=== PATIENT | female | born 1975 | race Hispanic/Latino ===

== ENCOUNTER → 2023-01-10 | Outpatient (CLI) | payer BC | END | disposition home or self-care (01) | LOC: RAH 13:22 | PROVIDERS: ATTEND Internal Medicine | DX: R10.11 Right upper quadrant pain (principal); M41.9 Scoliosis, unspecified | CPT/HCPCS: 72082 ==

== ENCOUNTER → 2023-01-12 | Outpatient (CLI) | payer BC | END | disposition home or self-care (01) | LOC: RAH 07:56 | PROVIDERS: ATTEND Internal Medicine | DX: R10.11 Right upper quadrant pain (principal); M41.9 Scoliosis, unspecified | CPT/HCPCS: 76700 ==

== ENCOUNTER → 2023-04-07 | Outpatient (CLI) | payer BC | END | disposition home or self-care (01) | LOC: RAH 08:24 | PROVIDERS: ATTEND Obstetrics & Gynecology | DX: Z12.31 Encounter for screening mammogram for malignant neoplasm of breast (principal) | CPT/HCPCS: 77067 ==

== ENCOUNTER → 2025-06-11 | Outpatient (CLI) | payer BC | END | disposition home or self-care (01) | LOC: RAH 07:35 | PROVIDERS: ATTEND Obstetrics & Gynecology | DX: Z12.31 Encounter for screening mammogram for malignant neoplasm of breast (principal) | CPT/HCPCS: 77067 ==

== ENCOUNTER → 2025-07-17 | Outpatient (CLI) | payer BC ==
--- NOTE | 2025-07-17 10:45 | HMCIMG ---
BILATERAL BREAST ULTRASOUND: Finding: Real-time examination of the both breasts demonstrates heterogeneous echotexture throughout both the breasts without evidence of focal solid or cystic masses. There is a left axillary lymph node measuring 1.2 x 0 6.7 x 1.4 cm. IMPRESSION: Dense breast with no lesion seen. FINAL ASSESSMENT: ACR: BI-RAD- 2. Benign: Also a negative assessment; finding(s) benign abnormalities. Management: Routine mammography screening. Likelihood of Cancer: Essentially 0% likelihood of malignancy.
--- NOTE | 2025-07-17 10:48 | HMCIMG ---
DIGITAL left breast DIAGNOSTIC MAMMOGRAM WITH TOMOSYNTHESIS, DATED 07/17/2025 1:00 AM CDT Technique: The digital mammographic examination of left breast in craniocaudal and mediolateral oblique views along with CAD was obtained. Tomosynthesis of left breast was obtained. Lateral breast sonogram was also obtained. History: This is a 50 years year-old female 1, para 1 Ab 0 for 3D Diagnostic mammogram. Patient has no family history of breast cancer. Patient has no complaint Reference:Prior mammogram from 06/11/2025, 04/07/2023 are available.. Breast composition: Breast composition C: The breasts are heterogeneously dense, which may obscure small masses. Finding: The digital mammographic examination of left breast in craniocaudal and mediolateral oblique view along with CAD demonstrates to be moderately heterogeneously dense. Tomography demonstrate no lesion seen. Ultrasound demonstrate dense breasts with no lesion seen.. There is no evidence of any dendritic mass, cluster microcalcification or architectural distortion. The Tomosynthesis demonstrates no lesion seen. The retromammary fat appears to be normal. IMPRESSION: Unchanged from prior mammography. NO RADIOGRAPHIC EVIDENCE OF MALIGNANT CHANGES. WE WOULD RECOMMEND ANNUAL FOLLOW UP WITH TOMOSYNTHESIS UNLESS OTHERWISE CLINICALLY INDICATED. FINAL ASSESSMENT: ACR: BI-RAD- 2. Benign: Also a negative assessment; finding(s) benign abnormalities. Management: Routine mammography screening. Likelihood of Cancer: Essentially 0% likelihood of malignancy. NOTE: IF A WORK-UP OF THIS PATIENT LEADS TO A BIOPSY, PLEASE FORWARD A COPY OF THE PATHOLOGY REPORT TO OUR OFFICE REQUIRED BY [facility] EFFECTIVE JULY 31, 1994. A NEGATIVE MAMMOGRAM SHOULD NOT PRECLUDE BIOPSY OF A CLINICALLY PALPABLE SUSPICIOUS MASS, 10% OF BREAST CANCERS ARE MAMMOGRAPHICALLY OCCULT. THIS MAMMOGRAPHY FACILITY IS FULLY ACCREDITED BY THE FOOD AND DRUG ADMINISTRATION (FDA). THANK YOU FOR THIS REFERRAL.
--- NOTE | 2025-07-19 10:30 | HMCIMG ---
DIGITAL left breast DIAGNOSTIC MAMMOGRAM WITH TOMOSYNTHESIS, DATED 07/17/2025 1:00 AM CDT Technique: The digital mammographic examination of left breast in craniocaudal and mediolateral oblique views along with CAD was obtained. Tomosynthesis of left breast was obtained. Lateral breast sonogram was also obtained. History: This is a 50 years year-old female 1, para 1 Ab 0 for 3D Diagnostic mammogram. Patient has no family history of breast cancer. Patient has no complaint Reference:Prior mammogram from 06/11/2025, 04/07/2023 are available.. Breast composition: Breast composition C: The breasts are heterogeneously dense, which may obscure small masses. Finding: The digital mammographic examination of left breast in craniocaudal and mediolateral oblique view along with CAD demonstrates to be moderately heterogeneously dense. Tomography demonstrate no lesion seen. Ultrasound demonstrate dense breasts with no lesion seen.. There is no evidence of any dendritic mass, cluster microcalcification or architectural distortion. The Tomosynthesis demonstrates no lesion seen. The retromammary fat appears to be normal. IMPRESSION: Unchanged from prior mammography. NO RADIOGRAPHIC EVIDENCE OF MALIGNANT CHANGES. WE WOULD RECOMMEND ANNUAL FOLLOW UP WITH TOMOSYNTHESIS UNLESS OTHERWISE CLINICALLY INDICATED. FINAL ASSESSMENT: ACR: BI-RAD- 2. Benign: Also a negative assessment; finding(s) benign abnormalities. Management: Routine mammography screening. Likelihood of Cancer: Essentially 0% likelihood of malignancy. NOTE: IF A WORK-UP OF THIS PATIENT LEADS TO A BIOPSY, PLEASE FORWARD A COPY OF THE PATHOLOGY REPORT TO OUR OFFICE REQUIRED BY [facility] EFFECTIVE JULY 31, 1994. A NEGATIVE MAMMOGRAM SHOULD NOT PRECLUDE BIOPSY OF A CLINICALLY PALPABLE SUSPICIOUS MASS, 10% OF BREAST CANCERS ARE MAMMOGRAPHICALLY OCCULT. THIS MAMMOGRAPHY FACILITY IS FULLY ACCREDITED BY THE FOOD AND DRUG ADMINISTRATION (FDA). THANK YOU FOR THIS REFERRAL.
== END | disposition home or self-care (01) ==
LOC: RAH 07:28
PROVIDERS: ATTEND Obstetrics & Gynecology
DX: R92.332 Mammographic heterogeneous density, left breast (principal); R92.2 Inconclusive mammogram
CPT/HCPCS: 77061; 77065